=== PATIENT | female | born 1985 | race American Indian/Alaskan Native ===

== ENCOUNTER 2016-12-10 14:20 | Emergency (ER) | payer OTHER ==
[2016-12-10 14:39] VITALS: BP 136/87
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
--- NOTE | 2016-12-10 17:24 | XRay Report ---
Lumbar spine: Back pain. Minimal anterior superior traction spur noted at L4. Vertebral height, alignment, and interspaces are well preserved. The bones are well-mineralized. Impression: No significant findings.
== END 2016-12-10 16:31 | disposition home or self-care (01) ==
LOC: ED 14:20
DX: S39.012A Strain of muscle, fascia and tendon of lower back, initial encounter (principal); Z91.040 Latex allergy status; Z91.041 Radiographic dye allergy status; V89.2XXA Person injured in unspecified motor-vehicle accident, traffic, initial encounter; Y93.89 Activity, other specified; Y99.8 Other external cause status; Y92.89 Other specified places as the place of occurrence of the external cause
CPT/HCPCS: 72100; 99283

== ENCOUNTER 2017-07-03 02:19 | Emergency (ER) | payer OTHER ==
[2017-07-03 03:22] LABS: Basophils % (Auto) 0.8 % (0.0-1.8); Eosinophils # (Auto) 0.1 K/mm3 (0.0-0.4); Eosinophils % (Auto) 1.1 % (0.0-4.3); Hematocrit 36.5 % (30.3-42.9); Hemoglobin 12.1 gm/dl (10.1-14.3); Lymphocytes # (Auto) 2.5 K/mm3 (1.2-5.4); Lymphocytes % (Auto) 44.8 % (13.4-35.0); Mean Corpuscular HGB Conc 33 % (30-34); Mean Corpuscular Hemoglobin 28 pg (28-32); Mean Corpuscular Volume 83 fl (79-97); Monocytes # (Auto) 0.4 K/mm3 (0.0-0.8); Monocytes % (Auto) 7.5 % (0.0-7.3); Platelet Count 317 K/mm3 (140-440); Red Blood Count 4.41 M/mm3 (3.65-5.03); Red Cell Distribution Width 15.6 % (13.2-15.2)
[2017-07-03 03:42] LABS: BUN/Creatinine Ratio 13; Blood Urea Nitrogen 9 mg/dL (7-17); Creatine Kinase MB 2.3 ng/mL (0.0-4.0); Hemolysis Index 2
[2017-07-03 03:52] LABS: Free T4 (Free Thyroxine) 1.16 ng/dL (0.76-1.46); HCG,Quantitative < 2 mIU/mL (0-4)
[2017-07-03] MEDS ORDERED: K-DUR PO ONE (04:03)
[2017-07-03 05:16] VITALS: BP 115/66
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
== END 2017-07-03 05:42 | disposition home or self-care (01) ==
LOC: ED 02:19
DX: F41.9 Anxiety disorder, unspecified (principal); E87.6 Hypokalemia; Z86.2 Personal history of diseases of the blood and blood-forming organs and certain disorders involving the immune mechanism; Z88.2 Allergy status to sulfonamides; Z91.040 Latex allergy status; Z90.49 Acquired absence of other specified parts of digestive tract
CPT/HCPCS: 36415; 80048; 82550; 82553; 83735; 84439; 84443; 84484; 84702; 85025; 85379; 93005; 93010